=== PATIENT | male | born 1940 | race Caucasian/White ===

== ENCOUNTER → 2018-06-20 | Outpatient (CLI) | payer MEDICARE | END | disposition home or self-care (01) | LOC: ROC 06-19 09:20 | PROVIDERS: ATTEND Radiology Radiation Oncology | DX: C44.41 Basal cell carcinoma of skin of scalp and neck (principal); Z88.0 Allergy status to penicillin | CPT/HCPCS: 99214; G0463 ==

== ENCOUNTER 2018-08-04 10:10 | Inpatient (IN) | payer MEDICARE ==
[~2018-08-04] VITALS: Ht 172.7 cm; Wt 46.3 kg
[2018-08-04] MEDS ORDERED: METHOCARBAMOL 750 MG TABLET PO ONE (10:30)
[2018-08-04] MEDS ORDERED: HYDROcodone/APAP 5/325 TABLET PO ONE (10:30)
[2018-08-04] MEDS ORDERED: METHOCARBAMOL 750 MG TABLET ONE (11:04)
[2018-08-04] MEDS ORDERED: HYDROcodone/APAP 5/325 TABLET ONE (11:05)
[2018-08-04] MEDS ORDERED: SODIUM CHLORIDE FLUSH 10ML SYR IVF ONE (11:30)
[2018-08-04 12:02] LABS: BASOPHILS # (AUTO) 0.01 x10^3/uL (0-0.1); BASOPHILS % (AUTO) 0 % (0-1); EOSINOPHILS # (AUTO) 0.17 x10^3/uL (0-0.4); EOSINOPHILS % (AUTO) 2 % (1-7); LYMPHOCYTES # (AUTO) 0.51 x10^3/uL (1-3.4); LYMPHOCYTES % (AUTO) 5 % (22-44); MD NO; MEAN CORPUSCULAR HEMOGLOBIN 32.7 pg (27.5-34.5); MEAN CORPUSCULAR VOLUME 96.1 fL (81-97); MEAN PLATELET VOLUME 8.3 fL (7.4-10.4); MONOCYTES # (AUTO) 1.03 x10^3/uL (0.2-0.8); MONOCYTES % (AUTO) 10 % (2-9); NEUTROPHILS # (AUTO) 8.76 x10^3/uL (1.8-6.8); NEUTROPHILS % (AUTO) 84 % (42-75); PLATELET COUNT 202 x10^3/uL (130-400); RED BLOOD COUNT 4.02 x10^6/uL (4.38-5.82); RED CELL DISTRIBUTION WIDTH 14.9 % (9.4-14.8)
[2018-08-04 12:12] LABS: ALBUMIN 2.8 g/dL (3.4-5.0); ANION GAP 7 mmol/L (5-15); CALCIUM 8.7 mg/dL (8.5-10.1); CHLORIDE 100 mmol/L (98-107); CREATININE 0.88 mg/dL (0.7-1.3)
[2018-08-04] MEDS ORDERED: SODIUM CHLORIDE FLUSH 10ML SYR IVF PRN (13:00)
[2018-08-04] MEDS ORDERED: ONDANSETRON ODT 4 MG PO PRN (13:30)
[2018-08-04] MEDS ORDERED: ONDANSETRON 2MG/ML, 2ML IVPush PRN (13:30)
[2018-08-04] MEDS ORDERED: ENALAPRILAT 1.25 MG/ML, 2ML IVPush PRN (13:30)
[2018-08-04] MEDS ORDERED: LIDODERM 5% PATCH TD PRN (13:30)
[2018-08-04] MEDS ORDERED: ACETAMINOPHEN 325 MG TABLET PO PRN (13:30)
[2018-08-04] MEDS ORDERED: BISACODYL 10 MG SUPP PR PRN (13:30)
[2018-08-04] MEDS ORDERED: DOCUSATE 100 MG CAPSULE PO PRN (13:30)
[2018-08-04] MEDS ORDERED: LABETALOL 5MG/ML, 20ML IVPush PRN (13:30)
[2018-08-04 13:33] LABS: MICROSCOPIC NOT IND
[2018-08-04 13:45] LABS: CULTURE INDICATED? NO
[2018-08-04 14:21] VITALS: BP 198/95
[2018-08-04] MEDS ORDERED: [UNRECOGNIZED DRUG - CODE] PO (14:34)
[2018-08-04] MEDS ORDERED: AMLO5TAB4 PO (14:34)
[2018-08-04] MEDS ORDERED: FINA5TAB PO (14:34)
[2018-08-04] MEDS ORDERED: TAMS0.4C2 PO (14:34)
[2018-08-04] MEDS ORDERED: DEME150T PO (14:34)
[2018-08-04] MEDS ORDERED: CARV25TA PO (14:34)
[2018-08-04 14:44] VITALS: BP 187/95
[2018-08-04] MEDS: ENOXAPARIN 40 MG/0.4 ML SQ SCH (14:52)
[2018-08-04 15:36] VITALS: BP 154/81
[2018-08-04] MEDS ORDERED: DEMECLOCYCLINE 150 MG TABLET PO SCH (16:30)
[2018-08-04] MEDS: POTASSIUM ACETATE HOMEMEDPO SCH (16:51)
[2018-08-04] MEDS: DEMECLOCYCLINE 150 MG TABLET HOMEMEDPO SCH (16:51)
[2018-08-04] MEDS: FINASTERIDE 5 MG TABLET PO SCH (17:01)
[2018-08-04 20:02] VITALS: BP 154/75
[2018-08-04] MEDS: KETOROLAC 30 MG/1 ML IV PRN (21:51)
[2018-08-04] MEDS: CARVEDILOL 25 MG TABLET PO SCH (21:51)
[2018-08-05 00:35] VITALS: BP 133/73
[2018-08-05 04:41] LABS: BASOPHILS # (AUTO) 0.05 x10^3/uL (0-0.1); BASOPHILS % (AUTO) 1 % (0-1); EOSINOPHILS # (AUTO) 0.31 x10^3/uL (0-0.4); EOSINOPHILS % (AUTO) 4 % (1-7); LYMPHOCYTES # (AUTO) 0.54 x10^3/uL (1-3.4); LYMPHOCYTES % (AUTO) 7 % (22-44); MD NO; MEAN CORPUSCULAR HEMOGLOBIN 32.6 pg (27.5-34.5); MEAN CORPUSCULAR HGB CONC 34.1 g/dL (33.2-36.2); MEAN CORPUSCULAR VOLUME 95.7 fL (81-97); MEAN PLATELET VOLUME 8.3 fL (7.4-10.4); MONOCYTES # (AUTO) 0.77 x10^3/uL (0.2-0.8); MONOCYTES % (AUTO) 10 % (2-9); NEUTROPHILS # (AUTO) 5.77 x10^3/uL (1.8-6.8); NEUTROPHILS % (AUTO) 78 % (42-75); PLATELET COUNT 189 x10^3/uL (130-400); RED BLOOD COUNT 3.76 x10^6/uL (4.38-5.82); RED CELL DISTRIBUTION WIDTH 14.9 % (9.4-14.8)
[2018-08-05 04:53] LABS: ANION GAP 6 mmol/L (5-15); CALCIUM 8.1 mg/dL (8.5-10.1); CHLORIDE 102 mmol/L (98-107)
[2018-08-05] MEDS: BACLOFEN 10 MG TABLET PO PRN (04:54)
[2018-08-05] MEDS: KETOROLAC 30 MG/1 ML IV PRN (04:54)
[2018-08-05 04:55] LABS: CREATININE 0.94 mg/dL (0.7-1.3)
[2018-08-05 07:52] VITALS: BP 161/80
[2018-08-05] MEDS: SENNA/DOCUSATE TABLET PO SCH (09:09)
[2018-08-05] MEDS: CARVEDILOL 25 MG TABLET PO SCH ×2 (09:10→20:15)
[2018-08-05] MEDS: TAMSULOSIN 0.4 MG CAP.ER.24H PO SCH (09:10)
[2018-08-05] MEDS: AMLODIPINE 5 MG TABLET PO SCH (09:10)
[2018-08-05] MEDS: IBUPROFEN 600 MG TABLET PO PRN (11:47)
[2018-08-05] MEDS: CYCLOBENZAPRINE 10 MG TABLET PO PRN (11:47)
[2018-08-05 13:17] VITALS: BP 92/58
[2018-08-05] MEDS: ENOXAPARIN 40 MG/0.4 ML SQ SCH (13:36)
[2018-08-05 13:38] VITALS: BP 100/59
[2018-08-05] MEDS: DEMECLOCYCLINE 150 MG TABLET HOMEMEDPO SCH (16:30)
[2018-08-05] MEDS: POTASSIUM ACETATE HOMEMEDPO SCH (16:30)
[2018-08-05] MEDS: FINASTERIDE 5 MG TABLET PO SCH (16:46)
[2018-08-05 19:38] VITALS: BP 140/67
[2018-08-06 00:46] VITALS: BP 133/67
[2018-08-06] MEDS: BACLOFEN 10 MG TABLET PO PRN (06:23)
[2018-08-06 06:47] VITALS: BP 147/74
[2018-08-06] MEDS: TAMSULOSIN 0.4 MG CAP.ER.24H PO SCH (09:07)
[2018-08-06] MEDS: AMLODIPINE 5 MG TABLET PO SCH (09:07)
[2018-08-06] MEDS: SENNA/DOCUSATE TABLET PO SCH (09:07)
[2018-08-06] MEDS: CARVEDILOL 25 MG TABLET PO SCH ×2 (09:07→21:00)
[2018-08-06] MEDS: KETOROLAC 30 MG/1 ML IV PRN ×2 (09:08→23:52)
[2018-08-06 12:16] VITALS: BP 138/81
[2018-08-06] MEDS: ENOXAPARIN 40 MG/0.4 ML SQ SCH (12:49)
[2018-08-06] MEDS ORDERED: BACLOFEN 10 MG TABLET PO PRN (13:00)
[2018-08-06] MEDS: POTASSIUM ACETATE HOMEMEDPO SCH (16:24)
[2018-08-06] MEDS: DEMECLOCYCLINE 150 MG TABLET HOMEMEDPO SCH (16:24)
[2018-08-06] MEDS: FINASTERIDE 5 MG TABLET PO SCH (16:26)
[2018-08-06] MEDS: CYCLOBENZAPRINE 10 MG TABLET PO PRN (18:37)
[2018-08-06 19:12] VITALS: BP 117/73
[2018-08-07 01:44] VITALS: BP 156/89
[2018-08-07] MEDS: IBUPROFEN 600 MG TABLET PO PRN (03:22)
[2018-08-07] MEDS: CYCLOBENZAPRINE 10 MG TABLET PO PRN (03:22)
[2018-08-07 07:22] VITALS: BP 153/67
[2018-08-07] MEDS: TAMSULOSIN 0.4 MG CAP.ER.24H PO SCH (10:13)
[2018-08-07] MEDS: AMLODIPINE 5 MG TABLET PO SCH (10:13)
[2018-08-07] MEDS: CARVEDILOL 25 MG TABLET PO SCH (10:13)
[2018-08-07] MEDS: SENNA/DOCUSATE TABLET PO SCH (10:15)
[2018-08-07 10:19] LABS: BASOPHILS # (AUTO) 0.02 x10^3/uL (0-0.1); BASOPHILS % (AUTO) 0 % (0-1); EOSINOPHILS # (AUTO) 0.39 x10^3/uL (0-0.4); EOSINOPHILS % (AUTO) 5 % (1-7); LYMPHOCYTES # (AUTO) 0.48 x10^3/uL (1-3.4); LYMPHOCYTES % (AUTO) 6 % (22-44); MD NO; MEAN CORPUSCULAR HEMOGLOBIN 31.7 pg (27.5-34.5); MEAN CORPUSCULAR HGB CONC 33.5 g/dL (33.2-36.2); MEAN CORPUSCULAR VOLUME 94.6 fL (81-97); MEAN PLATELET VOLUME 7.9 fL (7.4-10.4); MONOCYTES # (AUTO) 0.79 x10^3/uL (0.2-0.8); MONOCYTES % (AUTO) 10 % (2-9); NEUTROPHILS # (AUTO) 6.02 x10^3/uL (1.8-6.8); NEUTROPHILS % (AUTO) 78 % (42-75); PLATELET COUNT 230 x10^3/uL (130-400); RED BLOOD COUNT 4.29 x10^6/uL (4.38-5.82); RED CELL DISTRIBUTION WIDTH 14.8 % (9.4-14.8)
[2018-08-07 10:28] LABS: ALANINE AMINOTRANSFERASE 37 U/L (12-78); ALBUMIN 2.6 g/dL (3.4-5.0); ANION GAP 8 mmol/L (5-15); CALCIUM 8.5 mg/dL (8.5-10.1); CHLORIDE 98 mmol/L (98-107); CREATININE 0.87 mg/dL (0.7-1.3)
[2018-08-07 10:30] LABS: ALKALINE PHOSPHATASE 216 U/L (45-117); BILIRUBIN,TOTAL 0.5 mg/dL (0.2-1.0); TOTAL PROTEIN 6.7 g/dL (6.4-8.2)
[2018-08-07] MEDS ORDERED: ONDA4TAB13 PO (11:36)
[2018-08-07] MEDS ORDERED: TRAM50TA2 PO (11:36)
[2018-08-07] MEDS ORDERED: GABA300C PO (11:36)
[2018-08-07] MEDS ORDERED: CYCL-259 PO (11:36)
[2018-08-07] MEDS ORDERED: LIDO700A20 TD (11:36)
[2018-08-07] MEDS: ENOXAPARIN 40 MG/0.4 ML SQ SCH (13:30)
[2018-08-07] MEDS: FINASTERIDE 5 MG TABLET PO SCH (16:25)
[2018-08-07] MEDS: KETOROLAC 30 MG/1 ML IV PRN (16:25)
[2018-08-07] MEDS: DEMECLOCYCLINE 150 MG TABLET HOMEMEDPO SCH (16:30)
[2018-08-07] MEDS: POTASSIUM ACETATE HOMEMEDPO SCH (16:30)
== END 2018-08-07 16:40 | disposition home or self-care (01) | DRG 91 ==
LOC: ED 12:54 → EDIP 12:55 → 3NW 13:52
PROVIDERS: ADMIT Family Medicine; ATTEND Family Medicine
DX: G95.29 Other cord compression (principal); E43 Unspecified severe protein-calorie malnutrition; M80.88XA Other osteoporosis with current pathological fracture, vertebra(e), initial encounter for fracture; E87.1 Hypo-osmolality and hyponatremia; M54.5 Low back pain; Z88.0 Allergy status to penicillin; I10 Essential (primary) hypertension; D64.9 Anemia, unspecified; I70.0 Atherosclerosis of aorta; J44.9 Chronic obstructive pulmonary disease, unspecified; M85.80 Other specified disorders of bone density and structure, unspecified site; Z85.820 Personal history of malignant melanoma of skin; Z87.891 Personal history of nicotine dependence; Z99.81 Dependence on supplemental oxygen
CPT/HCPCS: 36415; 70551; 72072; 72110; 77412; 80048; 80053; 81003; 82040; 83735; 84100; 85025; 93880; 99285; G0378; J1650; J1885

== ENCOUNTER 2018-09-29 08:49 | Outpatient (CLI) | payer MEDICARE ==
[~2018-09-29 08:49] MED LIST: AMLO5TAB4 PO; CARV25TA PO; CYCL-259 PO; DEME150T PO; FINA5TAB PO; GABA300C PO; LIDO700A20 TD; ONDA4TAB13 PO; TAMS0.4C2 PO; TRAM50TA2 PO; [UNRECOGNIZED DRUG - CODE] PO
== END 2018-09-29 23:59 | disposition home or self-care (01) ==
LOC: ROC 08:49
PROVIDERS: ATTEND Radiology Radiation Oncology
DX: Z02.9 Encounter for administrative examinations, unspecified (principal)

== ENCOUNTER 2018-10-06 07:20 | Outpatient (CLI) | payer MEDICARE | END 2018-10-06 23:59 | disposition home or self-care (01) | LOC: ROC 07:20 | PROVIDERS: ATTEND Radiology Radiation Oncology | DX: C44.41 Basal cell carcinoma of skin of scalp and neck (principal) | CPT/HCPCS: 99212; G0463 ==

== ENCOUNTER 2019-02-26 22:26 | Inpatient (IN) | payer MEDICARE ==
[~2019-02-26] VITALS: Ht 172.7 cm; Wt 48.0 kg
--- NOTE | 2019-02-26 22:34 | NUR ---
EKG DONE ON ARRIVAL
[2019-02-26] MEDS ORDERED: LISINOPRIL (22:49)
[2019-02-26] MEDS ORDERED: ALBU8.5H8 INH (22:49)
--- NOTE | 2019-02-26 23:00 | NUR ---
PT IN HOSPITAL GOWN. SON AT BEDSIDE. PT PLACED ON ICE BAG ASSEMBLER AND VITALS MONITORS. PT HAS IV ESTABLISHED.
[2019-02-26 23:05] LABS: BASOPHILS % (AUTO) 0 % (0-1); EOSINOPHILS # (AUTO) 0.62 x10^3/uL (0-0.4); EOSINOPHILS % (AUTO) 8 % (1-7); LYMPHOCYTES # (AUTO) 0.68 x10^3/uL (1-3.4); LYMPHOCYTES % (AUTO) 8 % (22-44); MD NO; MEAN CORPUSCULAR HEMOGLOBIN 29.7 pg (27.5-34.5); MEAN CORPUSCULAR HGB CONC 31.3 g/dL (33.2-36.2); MEAN CORPUSCULAR VOLUME 94.6 fL (81-97); MEAN PLATELET VOLUME 7.8 fL (7.4-10.4); MONOCYTES # (AUTO) 0.61 x10^3/uL (0.2-0.8); MONOCYTES % (AUTO) 8 % (2-9); NEUTROPHILS # (AUTO) 6.22 x10^3/uL (1.8-6.8); NEUTROPHILS % (AUTO) 77 % (42-75); PLATELET COUNT 231 x10^3/uL (130-400); RED BLOOD COUNT 4.41 x10^6/uL (4.38-5.82); RED CELL DISTRIBUTION WIDTH 14.9 % (9.4-14.8)
[2019-02-26 23:15] LABS: ALANINE AMINOTRANSFERASE 27 U/L (12-78); ALBUMIN 2.9 g/dL (3.4-5.0); ANION GAP 9 mmol/L (5-15); CALCIUM 8.4 mg/dL (8.5-10.1); CHLORIDE 105 mmol/L (98-107); CREATININE 1.08 mg/dL (0.7-1.3)
[2019-02-26 23:20] LABS: ALKALINE PHOSPHATASE 225 U/L (45-117); BILIRUBIN,TOTAL 0.4 mg/dL (0.2-1.0); TOTAL PROTEIN 6.8 g/dL (6.4-8.2); TROPONIN I < 0.015 ng/mL (0.000-0.045)
--- NOTE | 2019-02-26 23:25 | NUR ---
NO RT EVAL ORDERED AT THIS TIME. DISCUSSED WITH ERP. PT RECIEVED 3 NBBP TXs WITH [facility] AND IV STEROIDS. ERP STATED WILL RE-EVAL PT.
--- NOTE | 2019-02-27 00:08 | NUR ---
PT GOING TO CTA AT THIS TIME.
[2019-02-27] MEDS ORDERED: OMNIPAQUE 350 MG/ML, 100ML BOTTLE ONE (00:30)
--- NOTE | 2019-02-27 00:48 | NUR ---
PT RESTING CALMLY IN BED AT THIS TIME. PT ABLE TO URINATE IN URINAL. AWAITING CTA READ. PT SON REMAINS AT BEDSIDE. NO COMPLAINTS STATED BY PT AT THIS TIME.
--- NOTE | 2019-02-27 01:05 | NUR ---
ALL PT RESULTS BACK. PT UP FOR RECHECK.
[2019-02-27 01:33] LABS: INTERNATIONAL NORMALIZED RATIO 1.09 (0.93-1.1); PROTHROMBIN TIME 11.4 Seconds (9.6-11.5)
--- NOTE | 2019-02-27 01:53 | NUR ---
REPORT TO SHANNA LOPEZ FOR ROOM 523
[2019-02-27] MEDS ORDERED: HEPARIN 25,000 UNITS/500ML PMX 500 ML IV PRN ×3 (02:00→04:00)
[2019-02-27] MEDS ORDERED: HEPARIN 5,000 UNITS/ML, 1ML IV ONE ×2 (02:00)
--- NOTE | 2019-02-27 02:06 | NUR ---
HOSPITALIST IN ROOM. PT READY TO GO AFTER.
[2019-02-27] MEDS ORDERED: HEPARIN 5,000 UNITS/ML, 1ML ONE (02:10)
[2019-02-27] MEDS ORDERED: HEPARIN 25,000 UNITS/500ML PMX 500 ML ONE (02:10)
[2019-02-27] MEDS ORDERED: ONDANSETRON 2MG/ML, 2ML IVPush PRN (02:30)
[2019-02-27] MEDS ORDERED: ACETAMINOPHEN 325 MG TABLET PO PRN (02:30)
[2019-02-27] MEDS ORDERED: LIDODERM 5% PATCH TD PRN (02:30)
[2019-02-27 02:36] VITALS: BP 168/83
[2019-02-27 04:42] LABS: TROPONIN I < 0.015 ng/mL (0.000-0.045)
[2019-02-27 04:43] LABS: CHOL/HDL RATIO 3.5; LDL/HDL RATIO 2.3 (0.5-3.0)
[2019-02-27 08:03] VITALS: BP 157/75
[2019-02-27 08:39] LABS: TROPONIN I < 0.015 ng/mL (0.000-0.045)
[2019-02-27] MEDS: ALBUTEROL SULFATE 2.5 MG/3 ML NPPB SCH ×3 (09:00→21:20)
[2019-02-27] MEDS: BUDESONIDE 0.5 MG/2 ML INHA NPPB SCH ×2 (09:00→21:20)
[2019-02-27] MEDS: TAMSULOSIN 0.4 MG CAP.ER.24H PO SCH (10:05)
[2019-02-27] MEDS: LISINOPRIL 5 MG TABLET PO SCH (10:05)
[2019-02-27 13:21] VITALS: BP 157/77
[2019-02-27] MEDS: HEPARIN 5,000 UNITS/ML, 1ML IV PRN (16:38)
[2019-02-27] MEDS: FINASTERIDE 5 MG TABLET PO SCH (16:39)
[2019-02-27 19:17] VITALS: BP 118/65
[2019-02-28 00:24] VITALS: BP 119/56
[2019-02-28] MEDS: ALBUTEROL SULFATE 2.5 MG/3 ML NPPB SCH ×4 (03:00→19:49)
[2019-02-28 05:33] LABS: ANION GAP 9 mmol/L (5-15); CALCIUM 8.1 mg/dL (8.5-10.1); CHLORIDE 105 mmol/L (98-107)
[2019-02-28 05:34] LABS: CREATININE 1.01 mg/dL (0.7-1.3)
[2019-02-28] MEDS: HEPARIN 5,000 UNITS/ML, 1ML IV PRN (06:12)
[2019-02-28] MEDS: LISINOPRIL 5 MG TABLET PO SCH (08:33)
[2019-02-28] MEDS: TAMSULOSIN 0.4 MG CAP.ER.24H PO SCH (08:33)
[2019-02-28] MEDS ORDERED: POTASSIUM CHLORIDE 20 MEQ TAB.ER.PRT PO ONE ×2 (09:00→14:30)
[2019-02-28 09:38] VITALS: BP 117/66
[2019-02-28] MEDS: BUDESONIDE 0.5 MG/2 ML INHA NPPB SCH ×2 (10:05→19:49)
[2019-02-28 14:16] VITALS: BP 161/82
[2019-02-28] MEDS: FINASTERIDE 5 MG TABLET PO SCH (15:39)
[2019-02-28 19:30] VITALS: BP 156/78
[2019-03-01 00:15] VITALS: BP 132/61
[2019-03-01 01:32] LABS: BASOPHILS # (AUTO) 0.01 x10^3/uL (0-0.1); BASOPHILS % (AUTO) 0 % (0-1); EOSINOPHILS # (AUTO) 0.05 x10^3/uL (0-0.4); EOSINOPHILS % (AUTO) 1 % (1-7); LYMPHOCYTES # (AUTO) 0.48 x10^3/uL (1-3.4); LYMPHOCYTES % (AUTO) 7 % (22-44); MD NO; MEAN CORPUSCULAR HEMOGLOBIN 30.2 pg (27.5-34.5); MEAN CORPUSCULAR HGB CONC 32.2 g/dL (33.2-36.2); MEAN PLATELET VOLUME 7.8 fL (7.4-10.4); MONOCYTES # (AUTO) 0.66 x10^3/uL (0.2-0.8); MONOCYTES % (AUTO) 10 % (2-9); NEUTROPHILS # (AUTO) 5.36 x10^3/uL (1.8-6.8); NEUTROPHILS % (AUTO) 82 % (42-75); PLATELET COUNT 201 x10^3/uL (130-400); RED BLOOD COUNT 3.68 x10^6/uL (4.38-5.82); RED CELL DISTRIBUTION WIDTH 14.6 % (9.4-14.8)
[2019-03-01 01:34] LABS: ANION GAP 6 mmol/L (5-15); CALCIUM 8.2 mg/dL (8.5-10.1); CHLORIDE 104 mmol/L (98-107); CREATININE 0.91 mg/dL (0.7-1.3)
[2019-03-01] MEDS: HEPARIN 5,000 UNITS/ML, 1ML IV PRN (02:11)
[2019-03-01] MEDS: ALBUTEROL SULFATE 2.5 MG/3 ML NPPB SCH ×4 (02:31→20:45)
[2019-03-01 08:33] VITALS: BP 178/84
[2019-03-01] MEDS: LISINOPRIL 5 MG TABLET PO SCH (08:35)
[2019-03-01] MEDS: TAMSULOSIN 0.4 MG CAP.ER.24H PO SCH (08:35)
[2019-03-01] MEDS: BUDESONIDE 0.5 MG/2 ML INHA NPPB SCH ×2 (10:25→20:45)
[2019-03-01] MEDS: FINASTERIDE 5 MG TABLET PO SCH (15:31)
[2019-03-01 15:41] VITALS: BP 145/73
[2019-03-01 20:07] VITALS: BP_SYST 111; BP_SYST 125; BP_DIAS 56; BP_DIAS 81
[2019-03-01] MEDS: HEPARIN 25,000 UNITS/500ML PMX 500 ML IV PRN (21:28)
[2019-03-02 02:17] VITALS: BP 100/56
[2019-03-02] MEDS: ALBUTEROL SULFATE 2.5 MG/3 ML NPPB SCH ×4 (03:00→21:05)
[2019-03-02] MEDS: BUDESONIDE 0.5 MG/2 ML INHA NPPB SCH ×2 (06:47→21:05)
[2019-03-02 09:58] VITALS: BP 166/85
[2019-03-02] MEDS ORDERED: MIDAZOLAM 1 MG/ML, 5ML ONE ×2 (11:07→15:02)
[2019-03-02] MEDS ORDERED: FENTANYL PF 100 MCG/2ML ONE ×2 (11:07→15:02)
[2019-03-02] MEDS ORDERED: NALOXONE 1 MG/ML, 2ML ONE ×2 (11:08→15:02)
[2019-03-02] MEDS ORDERED: FLUMAZENIL 0.1 MG/1 ML, 5ML ONE ×2 (11:08→15:02)
[2019-03-02] MEDS: LISINOPRIL 5 MG TABLET PO SCH (12:36)
[2019-03-02] MEDS: TAMSULOSIN 0.4 MG CAP.ER.24H PO SCH (12:36)
[2019-03-02] MEDS ORDERED: D5%-0.45% NACL 1,000 ML IV SCH (15:00)
[2019-03-02] MEDS ORDERED: LIDOCAINE-MPF 1%, 5ML ONE (15:11)
[2019-03-02] MEDS: FINASTERIDE 5 MG TABLET PO SCH (16:14)
[2019-03-02 16:34] VITALS: BP 175/83
[2019-03-02 20:25] VITALS: BP 138/74
[2019-03-03 01:36] VITALS: BP 148/72
[2019-03-03] MEDS: ALBUTEROL SULFATE 2.5 MG/3 ML NPPB SCH ×4 (02:03→19:19)
[2019-03-03 06:46] VITALS: BP 196/98
[2019-03-03] MEDS: BUDESONIDE 0.5 MG/2 ML INHA NPPB SCH ×2 (07:34→19:19)
[2019-03-03] MEDS: LISINOPRIL 5 MG TABLET PO SCH (07:38)
[2019-03-03] MEDS: TAMSULOSIN 0.4 MG CAP.ER.24H PO SCH (07:38)
[2019-03-03 14:33] VITALS: BP 104/59
[2019-03-03] MEDS: FINASTERIDE 5 MG TABLET PO SCH (17:13)
[2019-03-03] MEDS: HEPARIN 25,000 UNITS/500ML PMX 500 ML IV PRN (17:14)
[2019-03-03 20:13] VITALS: BP 118/57
[2019-03-04 02:26] VITALS: BP 177/78
[2019-03-04] MEDS: ALBUTEROL SULFATE 2.5 MG/3 ML NPPB SCH ×2 (03:00→06:55)
[2019-03-04 04:46] VITALS: BP 145/72
[2019-03-04] MEDS: BUDESONIDE 0.5 MG/2 ML INHA NPPB SCH ×2 (06:55→20:41)
[2019-03-04 07:58] VITALS: BP 168/74
[2019-03-04] MEDS: TAMSULOSIN 0.4 MG CAP.ER.24H PO SCH (08:03)
[2019-03-04] MEDS: LISINOPRIL 5 MG TABLET PO SCH (08:04)
[2019-03-04] MEDS ORDERED: ALBUTEROL SULFATE 2.5 MG/3 ML NPPB PRN (10:30)
[2019-03-04 13:00] VITALS: BP 107/62
[2019-03-04 15:40] LABS: HCT (SEDRATE) 36.7 % (39.2-51.8)
[2019-03-04] MEDS: FINASTERIDE 5 MG TABLET PO SCH (15:58)
[2019-03-04] MEDS: HEPARIN 25,000 UNITS/500ML PMX 500 ML IV PRN (19:52)
[2019-03-04 21:30] VITALS: BP 106/51
[2019-03-05 03:28] VITALS: BP 117/60
[2019-03-05 07:33] LABS: ANION GAP 4 mmol/L (5-15); CALCIUM 8.7 mg/dL (8.5-10.1); CHLORIDE 98 mmol/L (98-107); CREATININE 0.76 mg/dL (0.7-1.3)
[2019-03-05 07:48] VITALS: BP 180/83
[2019-03-05 07:48] LABS: BASOPHILS # (AUTO) 0.01 x10^3/uL (0-0.1); BASOPHILS % (AUTO) 0 % (0-1); EOSINOPHILS # (AUTO) 0.17 x10^3/uL (0-0.4); EOSINOPHILS % (AUTO) 2 % (1-7); LYMPHOCYTES # (AUTO) 0.66 x10^3/uL (1-3.4); LYMPHOCYTES % (AUTO) 6 % (22-44); MD NO; MEAN CORPUSCULAR HEMOGLOBIN 30.3 pg (27.5-34.5); MEAN CORPUSCULAR HGB CONC 32.6 g/dL (33.2-36.2); MEAN CORPUSCULAR VOLUME 92.7 fL (81-97); MEAN PLATELET VOLUME 7.9 fL (7.4-10.4); MONOCYTES # (AUTO) 0.92 x10^3/uL (0.2-0.8); MONOCYTES % (AUTO) 8 % (2-9); NEUTROPHILS # (AUTO) 9.44 x10^3/uL (1.8-6.8); NEUTROPHILS % (AUTO) 84 % (42-75); PLATELET COUNT 216 x10^3/uL (130-400); RED BLOOD COUNT 3.79 x10^6/uL (4.38-5.82); RED CELL DISTRIBUTION WIDTH 14.5 % (9.4-14.8)
[2019-03-05] MEDS: LISINOPRIL 5 MG TABLET PO SCH (08:02)
[2019-03-05] MEDS: TAMSULOSIN 0.4 MG CAP.ER.24H PO SCH (08:02)
[2019-03-05] MEDS: BUDESONIDE 0.5 MG/2 ML INHA NPPB SCH ×2 (09:00→20:53)
[2019-03-05 09:15] VITALS: BP 151/70
[2019-03-05 13:12] VITALS: BP 124/70
[2019-03-05 14:02] LABS: QUANTIFERON TB Ag1-NIL 0 (0.000-0.000)
[2019-03-05] MEDS: FINASTERIDE 5 MG TABLET PO SCH (16:03)
[2019-03-05] MEDS: ALBUTEROL SULFATE 2.5 MG/3 ML NPPB SCH ×2 (16:15→20:53)
[2019-03-05 19:31] VITALS: BP 174/80
[2019-03-05] MEDS: HEPARIN 25,000 UNITS/500ML PMX 500 ML IV PRN (22:52)
[2019-03-06] MEDS: ALBUTEROL SULFATE 2.5 MG/3 ML NPPB SCH ×4 (02:30→18:53)
[2019-03-06 03:30] VITALS: BP 130/70
[2019-03-06 07:58] VITALS: BP 149/70
[2019-03-06] MEDS: TAMSULOSIN 0.4 MG CAP.ER.24H PO SCH (08:00)
[2019-03-06] MEDS: LISINOPRIL 5 MG TABLET PO SCH (08:00)
[2019-03-06] MEDS: BUDESONIDE 0.5 MG/2 ML INHA NPPB SCH ×2 (08:09→18:53)
[2019-03-06 14:09] VITALS: BP 94/54
[2019-03-06] MEDS: FINASTERIDE 5 MG TABLET PO SCH (16:27)
[2019-03-06 20:56] VITALS: BP 95/55
[2019-03-07 02:13] VITALS: BP 131/53
[2019-03-07] MEDS: ALBUTEROL SULFATE 2.5 MG/3 ML NPPB SCH ×4 (02:30→21:00)
[2019-03-07] MEDS: HEPARIN 5,000 UNITS/ML, 1ML IV PRN (05:32)
[2019-03-07] MEDS: HEPARIN 25,000 UNITS/500ML PMX 500 ML IV PRN (05:33)
[2019-03-07 08:18] VITALS: BP 156/76
[2019-03-07] MEDS: LISINOPRIL 5 MG TABLET PO SCH (08:27)
[2019-03-07] MEDS: TAMSULOSIN 0.4 MG CAP.ER.24H PO SCH (08:27)
[2019-03-07] MEDS: BUDESONIDE 0.5 MG/2 ML INHA NPPB SCH ×2 (10:25→21:00)
[2019-03-07] MEDS ORDERED: RIVA1TAB PO (13:01)
[2019-03-07] MEDS ORDERED: LISI5TAB7 PO (13:01)
[2019-03-07] MEDS: RIVAROXABAN 15 MG TABLET PO SCH ×2 (13:49→13:54)
[2019-03-07 14:30] VITALS: BP 135/71
[2019-03-07] MEDS: FINASTERIDE 5 MG TABLET PO SCH (16:15)
[2019-03-07 20:10] VITALS: BP 116/69
[2019-03-08 02:09] VITALS: BP 128/71
[2019-03-08] MEDS: ALBUTEROL SULFATE 2.5 MG/3 ML NPPB SCH ×3 (03:00→09:00)
[2019-03-08] MEDS: BUDESONIDE 0.5 MG/2 ML INHA NPPB SCH (06:58)
[2019-03-08 07:31] VITALS: BP 163/77
[2019-03-08] MEDS: LISINOPRIL 5 MG TABLET PO SCH (08:22)
[2019-03-08] MEDS: RIVAROXABAN 15 MG TABLET PO SCH ×2 (08:22→17:14)
[2019-03-08] MEDS: TAMSULOSIN 0.4 MG CAP.ER.24H PO SCH (08:22)
[2019-03-08] MEDS: FINASTERIDE 5 MG TABLET PO SCH (13:07)
[2019-03-08 14:06] VITALS: BP 112/65
[2019-03-08 17:03] VITALS: BP 152/76
== END 2019-03-08 17:24 | disposition home or self-care (01) | DRG 175 ==
LOC: ED 22:47 → EDIP 02-27 01:17 → 5SO 02-27 02:46 → 4NOR 02-28 13:04
PROVIDERS: ADMIT Family Medicine; ATTEND Family Medicine
PROC: 0BBL3ZX Excision of Left Lung, Percutaneous Approach, Diagnostic (ICD-10-PCS; principal; 2019-03-02)
PROC: 0W9B30Z Drainage of Left Pleural Cavity with Drainage Device, Percutaneous Approach (ICD-10-PCS; 2019-03-02)
DX: I26.99 Other pulmonary embolism without acute cor pulmonale (principal); J96.21 Acute and chronic respiratory failure with hypoxia; E43 Unspecified severe protein-calorie malnutrition; J44.1 Chronic obstructive pulmonary disease with (acute) exacerbation; Z68.1 Body mass index [BMI] 19.9 or less, adult; I82.413 Acute embolism and thrombosis of femoral vein, bilateral; I82.431 Acute embolism and thrombosis of right popliteal vein; Z88.0 Allergy status to penicillin; D64.9 Anemia, unspecified; E87.6 Hypokalemia; F17.200 Nicotine dependence, unspecified, uncomplicated; I10 Essential (primary) hypertension; I73.9 Peripheral vascular disease, unspecified; J84.10 Pulmonary fibrosis, unspecified; N40.1 Benign prostatic hyperplasia with lower urinary tract symptoms; R33.8 Other retention of urine; Z79.899 Other long term (current) drug therapy; Z66 Do not resuscitate; Z82.49 Family history of ischemic heart disease and other diseases of the circulatory system; Z85.828 Personal history of other malignant neoplasm of skin; Z92.3 Personal history of irradiation; Z99.81 Dependence on supplemental oxygen
CPT/HCPCS: 32405; 32557; 36415; 71045; 71275; 77012; 80048; 80053; 80061; 83735; 84145; 84443; 84484; 85025; 85520; 85610; 85651; 85730; 86140; 86480; 87015; 87116; 87206; 88305; 88312; 93005; 93306; 93970; 94640; 99156; 99157; 99285; G0378; J1644; J2250; J3010; J7613; J7626; Q9967; C1729; J2310; J7512

== ENCOUNTER 2019-09-29 16:33 | Emergency (ER) | payer MEDICARE ==
[~2019-09-29] VITALS: Ht 170.2 cm; Wt 45.5 kg
[~2019-09-29 16:33] MED LIST changes: +ALBU8.5H8 INH; +LISI5TAB7 PO; +LISINOPRIL; +RIVA1TAB PO
--- NOTE | 2019-09-29 17:21 | NUR ---
THIS IS A 79 YO M BIB [facility]. PATIENT DENIES ANY NEW ONSET OF SYMPTOMS. RESPIRATIONS ARE EVEN AND UNLABORED. VS STABLE. PATIENT IS RESTING ON GURNEY WITH FAMILY AT BEDSIDE. DENIES FURTHER NEEDS AT THIS TIME.
[2019-09-29 17:39] LABS: ANION GAP 8 mmol/L (5-15); CALCIUM 8.3 mg/dL (8.5-10.1); CHLORIDE 99 mmol/L (98-107); CREATININE 0.69 mg/dL (0.7-1.3)
--- NOTE | 2019-09-29 17:54 | NUR ---
LAB SLIP SENT TO PHARMACY.
--- NOTE | 2019-09-29 17:59 | NUR ---
LABS REDRAWN AND SENT.
[2019-09-29] MEDS ORDERED: POTASSIUM CHLORIDE 20 MEQ PACKET PO ONE (18:00)
[2019-09-29 18:12] LABS: BASOPHILS # (AUTO) 0.03 x10^3/uL (0-0.1); BASOPHILS % (AUTO) 1 % (0-1); EOSINOPHILS # (AUTO) 0.73 x10^3/uL (0-0.4); EOSINOPHILS % (AUTO) 22 % (1-7); LYMPHOCYTES # (AUTO) 0.33 x10^3/uL (1-3.4); LYMPHOCYTES % (AUTO) 10 % (22-44); MD NO; MEAN CORPUSCULAR HEMOGLOBIN 31.8 pg (27.5-34.5); MEAN CORPUSCULAR HGB CONC 33.2 g/dL (33.2-36.2); MEAN CORPUSCULAR VOLUME 95.9 fL (81-97); MEAN PLATELET VOLUME 6.6 fL (7.4-10.4); MONOCYTES # (AUTO) 0.55 x10^3/uL (0.2-0.8); MONOCYTES % (AUTO) 17 % (2-9); NEUTROPHILS # (AUTO) 1.66 x10^3/uL (1.8-6.8); NEUTROPHILS % (AUTO) 50 % (42-75); PLATELET COUNT 216 x10^3/uL (130-400)
[2019-09-29] MEDS ORDERED: ACET325T14 PO (18:14)
[2019-09-29] MEDS ORDERED: AMLO-150 PO (18:15)
[2019-09-29] MEDS ORDERED: ALBU0.63 NEB (18:15)
[2019-09-29] MEDS ORDERED: POTASSIUM CHLORIDE 20 MEQ PACKET ONE (18:19)
[2019-09-29] MEDS ORDERED: ATOR40TA PO (18:20)
[2019-09-29] MEDS ORDERED: BUDE10.2 INH (18:22)
[2019-09-29] MEDS ORDERED: CALC500T29 PO (18:24)
[2019-09-29] MEDS ORDERED: CARV-39 PO (18:27)
[2019-09-29] MEDS ORDERED: CHOL10003 PO (18:28)
[2019-09-29] MEDS ORDERED: FLUT15.845 NAS (18:30)
[2019-09-29] MEDS ORDERED: HYDR30SU4 PR (18:31)
[2019-09-29] MEDS ORDERED: LEVE250T28 PO (18:31)
[2019-09-29] MEDS ORDERED: LIDO700A20 TD (18:35)
[2019-09-29] MEDS ORDERED: MAGN400T26 PO (18:36)
[2019-09-29] MEDS ORDERED: LACT-23 PO (18:37)
[2019-09-29] MEDS ORDERED: OMEP40CA42 PO (18:38)
[2019-09-29] MEDS ORDERED: POLY500P18 PO (18:42)
[2019-09-29] MEDS ORDERED: RIVA20TA PO (18:43)
[2019-09-29] MEDS ORDERED: POTA20PI PO (18:44)
[2019-09-29] MEDS ORDERED: DOCU240C53 PO (18:47)
[2019-09-29] MEDS ORDERED: TIOT4MIS5 INH (18:47)
[2019-09-29] MEDS ORDERED: POTASSIUM CHLORIDE 40 MEQ in SODIUM CHLORIDE 0.9% 500 ML IV ONE (19:00)
--- NOTE | 2019-09-29 19:20 | NUR ---
REPORT RECEIVED FROM JS RN. PT RESTING ON GURNEY WITH FAMILY AT FOR SUPPORT. PT CONENCTED TO MONITORING, CALL LIGHT WITHIN REACH, ALL SAFETY MEASURES IN PLACE.
--- NOTE | 2019-09-29 19:21 | NUR ---
PT UPDATED ON POC.
[2019-09-29 19:43] VITALS: BP 150/86
--- NOTE | 2019-09-29 19:45 | NUR ---
PT TO D/C MEDICATIONS STILL RUNNING. THIS RN INFORMED DR. DOSS. IV MEDS TO COMPLETE PRIOR TO D/C. PT UPDATED.
--- NOTE | 2019-09-29 20:50 | NUR ---
PT DID NOT WANT TO COMPLETE K+ MD MAITE NOTIFIED. DR. FELICIANO APPROVED D/C PRIOR TO MEDICATION COMPLETION DUE TO OTHER K+ MEDS BEING PROVIDED. PT UPDATED.
== END 2019-09-29 20:54 | disposition home or self-care (01) ==
LOC: ED 20:51
DX: D61.3 Idiopathic aplastic anemia (principal); E87.6 Hypokalemia; I10 Essential (primary) hypertension; Z87.891 Personal history of nicotine dependence
CPT/HCPCS: 36415; 80048; 85025; 93005; 96365; 96366; 99284; J3480; J7040

== ENCOUNTER 2019-10-09 14:50 | Emergency (ER) | payer OTHER ==
[~2019-10-09] VITALS: Ht 170.2 cm; Wt 35.8 kg
[~2019-10-09 14:50] MED LIST changes: +ACET325T14 PO; +ALBU0.63 NEB; +AMLO-150 PO; +ATOR40TA PO; +BUDE10.2 INH; +CALC500T29 PO; +CARV-39 PO; +CHOL10003 PO; +DOCU240C53 PO; +FLUT15.845 NAS; +HYDR30SU4 PR; +LACT-23 PO; +LEVE250T28 PO; +MAGN400T26 PO; +OMEP40CA42 PO; +POLY500P18 PO; +POTA20PI PO; +RIVA20TA PO; +TIOT4MIS5 INH
[2019-10-09 14:54] VITALS: BP 198/90
--- NOTE | 2019-10-09 15:01 | NUR ---
PT BIB BY BIN. AND OCCUPATIONAL THERAPIST SAID "HE WAS MIXING UP HIS WORDS AND WASNT MAKING ANY SENSE AND HE SEEMED CONFUSED". THIS EPISODE LASTED FOR ABOUT AN HOUR. THE MEDICARE SALES REPRESENTATIVE ALSO NOTICED IT WHEN SHE ARRIVED ON SCENE. PT RESPONDS TO ALL COMMANDS AND IS A0X4. EKG DONE. HOOKED UP TO MONUMENT LETTERER. BLANKET PROVIDED.
[2019-10-09] MEDS ORDERED: ASPIRIN 325 MG TABLET PO ONE (15:30)
[2019-10-09] MEDS ORDERED: ASPIRIN 81 MG TABLET CHEW ONE (15:31)
== END 2019-10-09 15:35 | disposition home or self-care (01) ==
LOC: ED 15:27
DX: G45.9 Transient cerebral ischemic attack, unspecified (principal); J44.9 Chronic obstructive pulmonary disease, unspecified; I10 Essential (primary) hypertension; Z87.891 Personal history of nicotine dependence
CPT/HCPCS: 93005; 99283

== ENCOUNTER 2020-10-17 11:03 | Emergency (ER) | payer OTHER ==
[~2020-10-17] VITALS: Ht 165.1 cm; Wt 38.6 kg
[~2020-10-17 11:03] MED LIST changes: +CEFD300C37 PO
[2020-10-17 11:55] LABS: BASOPHILS % (AUTO) 1 % (0-1); EOSINOPHILS % (AUTO) 3 % (1-7); LYMPHOCYTES % (AUTO) 7 % (22-44); MD NO; MEAN CORPUSCULAR HEMOGLOBIN 30.2 pg (27.5-34.5); MEAN CORPUSCULAR HGB CONC 33.5 g/dL (33.2-36.2); MONOCYTES % (AUTO) 8 % (2-9); NEUTROPHILS % (AUTO) 82 % (42-75); PLATELET COUNT 312 x10^3/uL (130-400); RED BLOOD COUNT 4.28 x10^6/uL (4.38-5.82); RED CELL DISTRIBUTION WIDTH 15.2 % (9.4-14.8)
[2020-10-17 12:00] LABS: ALBUMIN 3.2 g/dL (3.4-5.0); CHLORIDE 101 mmol/L (98-107)
[2020-10-17 12:03] LABS: ALANINE AMINOTRANSFERASE 34 U/L (12-78); ALKALINE PHOSPHATASE 121 U/L (45-117)
[2020-10-17 12:14] LABS: ANION GAP 5 mmol/L (5-15); CALCIUM 8.6 mg/dL (8.5-10.1)
[2020-10-17 12:18] LABS: BILIRUBIN,TOTAL 0.4 mg/dL (0.2-1.0); CREATININE 1.02 mg/dL (0.7-1.3); TOTAL PROTEIN 8.1 g/dL (6.4-8.2)
[2020-10-17 12:26] LABS: MICROSCOPIC AUTO
--- NOTE | 2020-10-17 13:59 | NUR ---
PT ABLE TO STAND AT BEDSIDE FOR SHORT DURATION. PT IS UNSAFE TO WALK SHORT DISTANCES. PT STATES HE USES A WC AT HOME. 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
[2020-10-17 15:50] VITALS: BP 170/98
--- NOTE | 2020-10-17 15:54 | NUR ---
TASK RN: PT DC'D HOME WITH [facility].
== END 2020-10-17 15:57 | disposition home or self-care (01) ==
LOC: ED 12:56
DX: R53.1 Weakness (principal); R41.82 Altered mental status, unspecified; R94.31 Abnormal electrocardiogram [ECG] [EKG]; I10 Essential (primary) hypertension; J44.9 Chronic obstructive pulmonary disease, unspecified; Z86.73 Personal history of transient ischemic attack (TIA), and cerebral infarction without residual deficits
CPT/HCPCS: 36415; 80053; 81001; 85025; 87086; 93005; 99284

== ENCOUNTER 2021-02-23 16:57 | Inpatient (IN) | payer OTHER ==
[~2021-02-23] VITALS: Ht 172.7 cm; Wt 58.6 kg
[~2021-02-23 16:57] MED LIST changes: -CYCL-259 PO; +CYCL10TA2 PO; -OMEP40CA42 PO; +OMEP40CA8 PO
--- NOTE | 2021-02-23 17:11 | NUR ---
ASSUMED CARE OF PATIENT. PATIENT AMADEO STEWARD FROM HOME. PT REPORTS HE HAS BEEN SOB. PT USED TWO OF HIS ALBUTEROL NEBS AT HOME, PT WAS GIVEN TWO DUO NEBS BY EMS. PT STILL WHEEZING. PT IS ON 2.5L OF OXYGEN AT HOME. VS STABLE. CUSTOMER CARE TEAM COACH ON. NSR NOTED. 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 CALL LIGHT IN PLACE. WILL CONTINUE TO MONITOR.
--- NOTE | 2021-02-23 17:24 | NUR ---
PT RESTING IN ROOM. VS STABLE. SKETCH MAKER ON. PULSE OX ON. VS STABLE. CALL LIGHT IN PLACE. WILL CONTINUE TO MONITOR.
[2021-02-23] MEDS ORDERED: ROPI0.254 PO (17:59)
[2021-02-23] MEDS ORDERED: CARV6.2512 PO (18:00)
--- NOTE | 2021-02-23 18:00 | NUR ---
CALLED, MED REC UPDATED.
[2021-02-23] MEDS ORDERED: methylPREDNISolone SOD SUCC 125 MG/2 ML IVPush ONE (18:30)
[2021-02-23] MEDS ORDERED: methylPREDNISolone SOD SUCC 125 MG/2 ML ONE (18:30)
[2021-02-23] MEDS ORDERED: SODIUM CHLORIDE FLUSH 10ML SYR IVF ONE (18:30)
[2021-02-23] MEDS ORDERED: DOXYCYCLINE 100MG TABLET PO ONE (18:30)
[2021-02-23] MEDS ORDERED: SODIUM CHLORIDE 0.9% 1,000 ML IV ONE (18:30)
[2021-02-23] MEDS ORDERED: CEFTRIAXONE 1,000 MG in DEXTROSE 5% 50 ML IVPB ONE (18:30)
[2021-02-23] MEDS ORDERED: DOXYCYCLINE 100MG TABLET ONE (18:31)
--- NOTE | 2021-02-23 18:46 | NUR ---
ABX GIVEN AFTER BLOOD CULTURES DRAWN X 2
[2021-02-23 18:52] LABS: BASOPHILS % (AUTO) 1 % (0-1); EOSINOPHILS % (AUTO) 9 % (1-7); LYMPHOCYTES % (AUTO) 6 % (22-44); MEAN CORPUSCULAR HEMOGLOBIN 29.4 pg (27.5-34.5); MEAN CORPUSCULAR HGB CONC 33.5 g/dL (33.2-36.2); MEAN PLATELET VOLUME 7.7 fL (7.4-10.4); MONOCYTES % (AUTO) 10 % (2-9); NEUTROPHILS % (AUTO) 75 % (42-75); PLATELET COUNT 329 x10^3/uL (130-400); RED BLOOD COUNT 3.76 x10^6/uL (4.38-5.82); RED CELL DISTRIBUTION WIDTH 16.4 % (9.4-14.8)
[2021-02-23 18:58] LABS: MD NO
[2021-02-23 19:03] LABS: ALBUMIN 2.6 g/dL (3.4-5.0); ANION GAP 5 mmol/L (5-15); CALCIUM 8.6 mg/dL (8.5-10.1); CHLORIDE 103 mmol/L (98-107); CREATININE 0.75 mg/dL (0.7-1.3)
[2021-02-23] MEDS ORDERED: GUAIFENESIN/DM 200-20MG, 10ML UDC PO PRN (19:30)
[2021-02-23] MEDS ORDERED: POLYETHYLENE GLYCOL 17 GM PACKET PO PRN (19:30)
[2021-02-23] MEDS ORDERED: ONDANSETRON ODT 4 MG PO PRN (19:30)
[2021-02-23] MEDS ORDERED: hydrALAzine 20 MG/ML, 1ML IVPush PRN (19:30)
[2021-02-23] MEDS ORDERED: ACETAMINOPHEN 325 MG TABLET PO PRN (19:30)
[2021-02-23] MEDS ORDERED: BISACODYL 10 MG SUPP PR PRN (19:30)
[2021-02-23] MEDS ORDERED: hydrALAzine 20 MG/ML, 1ML ONE (20:04)
[2021-02-23 20:51] VITALS: BP 175/86
[2021-02-23 21:54] VITALS: BP 164/64
[2021-02-23] MEDS: ROPINIROLE 0.25MG TABLET PO SCH (21:58)
[2021-02-23] MEDS: CARVEDILOL 12.5 MG TABLET PO SCH (21:58)
[2021-02-23] MEDS: SODIUM CHLORIDE FLUSH 10ML SYR IVF SCH (21:58)
[2021-02-23] MEDS ORDERED: ALBUTEROL SULFATE 2.5 MG/3 ML NPPB PRN (23:00)
[2021-02-24 01:27] VITALS: BP 146/60
[2021-02-24] MEDS: methylPREDNISolone SOD SUCC 125 MG/2 ML IVPush SCH ×3 (02:30→17:32)
[2021-02-24] MEDS: DOXYCYCLINE 100 MG in DEXTROSE 5% 250 ML IV SCH ×2 (06:14→17:31)
[2021-02-24 07:45] VITALS: BP 165/76
[2021-02-24] MEDS: SODIUM CHLORIDE FLUSH 10ML SYR IVF SCH ×2 (08:46→20:35)
[2021-02-24] MEDS: SENNA/DOCUSATE TABLET PO SCH (08:46)
[2021-02-24] MEDS: CARVEDILOL 12.5 MG TABLET PO SCH ×2 (08:46→20:41)
[2021-02-24] MEDS ORDERED: OMNIPAQUE 350 MG/ML, 100ML BOTTLE ONE (12:55)
[2021-02-24 15:01] VITALS: BP 155/75
[2021-02-24 19:59] VITALS: BP 150/68
[2021-02-24] MEDS: CEFTRIAXONE 1,000 MG in DEXTROSE 5% 50 ML IVPB SCH (20:35)
[2021-02-24] MEDS: ROPINIROLE 0.25MG TABLET PO SCH (20:41)
[2021-02-25] MEDS: methylPREDNISolone SOD SUCC 125 MG/2 ML IVPush SCH ×3 (02:26→17:55)
[2021-02-25] MEDS: DOXYCYCLINE 100 MG in DEXTROSE 5% 250 ML IV SCH ×2 (05:12→17:56)
[2021-02-25] MEDS ORDERED: BISACODYL 10 MG SUPP PR ONE (07:00)
[2021-02-25 07:15] VITALS: BP 150/66
[2021-02-25] MEDS: CARVEDILOL 12.5 MG TABLET PO SCH ×2 (08:04→20:42)
[2021-02-25] MEDS: SENNA/DOCUSATE TABLET PO SCH (08:05)
[2021-02-25] MEDS: SODIUM CHLORIDE FLUSH 10ML SYR IVF SCH ×2 (08:05→20:39)
[2021-02-25 13:16] VITALS: BP 170/82
[2021-02-25] MEDS: CEFTRIAXONE 1,000 MG in DEXTROSE 5% 50 ML IVPB SCH (20:39)
[2021-02-25] MEDS: ROPINIROLE 0.25MG TABLET PO SCH (20:42)
[2021-02-25 20:59] VITALS: BP 150/62
[2021-02-26 01:01] VITALS: BP 160/78
[2021-02-26] MEDS: methylPREDNISolone SOD SUCC 125 MG/2 ML IVPush SCH ×3 (02:40→18:25)
[2021-02-26] MEDS: DOXYCYCLINE 100 MG in DEXTROSE 5% 250 ML IV SCH ×2 (05:52→18:23)
[2021-02-26 07:09] VITALS: BP 163/81
[2021-02-26] MEDS: SENNA/DOCUSATE TABLET PO SCH (09:54)
[2021-02-26] MEDS: CARVEDILOL 12.5 MG TABLET PO SCH ×2 (09:54→20:38)
[2021-02-26] MEDS: SODIUM CHLORIDE FLUSH 10ML SYR IVF SCH ×2 (09:56→20:39)
[2021-02-26 12:45] VITALS: BP 169/81
[2021-02-26 20:36] VITALS: BP 172/76
[2021-02-26] MEDS: ROPINIROLE 0.25MG TABLET PO SCH (20:38)
[2021-02-26] MEDS: CEFTRIAXONE 1,000 MG in DEXTROSE 5% 50 ML IVPB SCH (20:39)
[2021-02-27 01:07] VITALS: BP 162/73
[2021-02-27] MEDS: methylPREDNISolone SOD SUCC 125 MG/2 ML IVPush SCH ×2 (02:57→10:47)
[2021-02-27] MEDS: DOXYCYCLINE 100 MG in DEXTROSE 5% 250 ML IV SCH (05:31)
[2021-02-27 07:03] VITALS: BP 189/86
[2021-02-27 09:00] VITALS: BP 185/66
[2021-02-27] MEDS: SENNA/DOCUSATE TABLET PO SCH (09:02)
[2021-02-27] MEDS: CARVEDILOL 12.5 MG TABLET PO SCH (09:02)
[2021-02-27] MEDS: SODIUM CHLORIDE FLUSH 10ML SYR IVF SCH (09:03)
[2021-02-27 12:54] VITALS: BP 180/82
== END 2021-02-27 13:18 | disposition hospice, home (50) | DRG 193 ==
LOC: ED 17:53 → EDIP 19:02 → 3N 20:48
PROVIDERS: ADMIT Internal Medicine; ATTEND Hospitalist
DX: J18.9 Pneumonia, unspecified organism (principal); E43 Unspecified severe protein-calorie malnutrition; J44.0 Chronic obstructive pulmonary disease with (acute) lower respiratory infection; J44.1 Chronic obstructive pulmonary disease with (acute) exacerbation; J96.10 Chronic respiratory failure, unspecified whether with hypoxia or hypercapnia; M48.56XA Collapsed vertebra, not elsewhere classified, lumbar region, initial encounter for fracture; Z68.1 Body mass index [BMI] 19.9 or less, adult; D64.9 Anemia, unspecified; F17.210 Nicotine dependence, cigarettes, uncomplicated; I10 Essential (primary) hypertension; I73.9 Peripheral vascular disease, unspecified; K56.41 Fecal impaction; N40.1 Benign prostatic hyperplasia with lower urinary tract symptoms; L92.9 Granulomatous disorder of the skin and subcutaneous tissue, unspecified; R33.8 Other retention of urine; Z66 Do not resuscitate; Z85.828 Personal history of other malignant neoplasm of skin; Z86.711 Personal history of pulmonary embolism; Z86.718 Personal history of other venous thrombosis and embolism; Z92.3 Personal history of irradiation; Z99.81 Dependence on supplemental oxygen; Z88.0 Allergy status to penicillin
CPT/HCPCS: 36415; 71045; 71275; 74176; 80048; 82040; 83605; 84145; 85025; 87040; 93005; 96365; 96375; 99285; G0378; J0696; J7060; Q9967; J0360; J2930; J7030

== ENCOUNTER 2021-04-11 18:32 | Inpatient (IN) | payer OTHER ==
[~2021-04-11] VITALS: Ht 172.7 cm; Wt 51.0 kg
[~2021-04-11 18:32] MED LIST changes: +ASPI-963 PO; +AZIT500T PO; +CARV6.2512 PO; +FAMO-79 PO; +IPRA3AMP30 NPPB; +LOSA25TA2 PO; +PRED5TAB PO; +ROPI0.254 PO
--- NOTE | 2021-04-11 18:50 | NUR ---
PT MITZI FROM HOME D/T SOB. PT WAS SEEN HERE RECENTLY ACCORDING TO PT AND , HE WAS DIAGNOSED WITH LUNG CA AND DC'D ON HOSPICE. NEITHER PT OR REPORT BEING HAPPY WITH HOSPICE AT THIS TIME, STATE HE WAS "MISDIAGNOSED". TODAY PT BEGAN HAVING AN EXACERBATION, REPORTS RESCUE INHALER DID NOT HELP. PT PLACED ON SPO2/BP/ECG MONITORING. BED IN LOWEST,RAILS ENGAGED, CALL LIGHT ON LAP, WCTM. HX OF COPD AND "LUNG CANCER" ON HOSPICE.
[2021-04-11] MEDS ORDERED: methylPREDNISolone SOD SUCC 125 MG/2 ML ONE (19:23)
[2021-04-11] MEDS ORDERED: methylPREDNISolone SOD SUCC 40 MG/ML IVPush ONE (19:30)
[2021-04-11] MEDS ORDERED: AZITHROMYCIN 500 MG in SODIUM CHLORIDE 0.9% 250 ML IV ONE (19:30)
[2021-04-11 19:45] LABS: BASOPHILS % (AUTO) 1 % (0-1); EOSINOPHILS % (AUTO) 4 % (1-7); LYMPHOCYTES % (AUTO) 4 % (22-44); MEAN CORPUSCULAR HEMOGLOBIN 30.4 pg (27.5-34.5); MEAN PLATELET VOLUME 7.9 fL (7.4-10.4); MONOCYTES % (AUTO) 8 % (2-9); NEUTROPHILS % (AUTO) 83 % (42-75); PLATELET COUNT 130 x10^3/uL (130-400); RED BLOOD COUNT 3.79 x10^6/uL (4.38-5.82); RED CELL DISTRIBUTION WIDTH 18.6 % (9.4-14.8)
[2021-04-11 19:49] LABS: ALANINE AMINOTRANSFERASE 23 U/L (12-78); ALBUMIN 2.7 g/dL (3.4-5.0); ANION GAP 4 mmol/L (5-15); CALCIUM 8.2 mg/dL (8.5-10.1); CHLORIDE 102 mmol/L (98-107); CREATININE 0.76 mg/dL (0.7-1.3)
[2021-04-11 19:52] LABS: ALKALINE PHOSPHATASE 101 U/L (45-117); BILIRUBIN,TOTAL 0.4 mg/dL (0.2-1.0); TOTAL PROTEIN 6.1 g/dL (6.4-8.2)
[2021-04-11] MEDS ORDERED: SODIUM CHLORIDE 0.9%, 500ML IVBOLUS ONE (20:30)
[2021-04-11] MEDS ORDERED: DOXYCYCLINE 100 MG in DEXTROSE 5% 250 ML IV ONE (20:30)
--- NOTE | 2021-04-11 20:30 | NUR ---
PT RESTING ON GURNEY. NAD, APPEARS COMFORTABLE, C/O SHORTNESS OF BREATH WHEN NOT SITTING UPRIGHT IN BED. PT MONITORING IN PLACE, CHART UP FOR RECHECK. WCTM.
[2021-04-11] MEDS ORDERED: ALBUTEROL/IPRATROPIUM 2.5MG/0.5MG, 3 ML ONE (20:38)
[2021-04-11] MEDS ORDERED: ALBUTEROL SULFATE 2.5 MG/3 ML ONE (20:38)
--- NOTE | 2021-04-11 20:47 | NUR ---
PT MARIAH MONTES DE OCA
[2021-04-11] MEDS ORDERED: ALBUTEROL/IPRATROPIUM 2.5MG/0.5MG, 3 ML NEB ONE (21:00)
[2021-04-11] MEDS ORDERED: ALBUTEROL SULFATE 2.5 MG/3 ML NPPB ONE (21:00)
--- NOTE | 2021-04-11 21:07 | NUR ---
PT MEDICATED PER MAR, TO BE ADMITTED TO HOSPITAL, AWAITING BED, NAD, STATES HE IS BREATHING BETTER AFTER TREATMENTS. DENIES ADDITIONAL NEEDS, MED REC OBTAINED OVER PHONE FROM . ISHA.
[2021-04-11] MEDS: ROPINIROLE 0.25MG TABLET PO SCH (21:24)
[2021-04-11] MEDS: AZITHROMYCIN 500 MG in SODIUM CHLORIDE 0.9% 250 ML IV SCH (21:24)
--- NOTE | 2021-04-11 21:25 | NUR ---
MEDS THAT PT TOOK PRIOR TO ARRIVAL PER NON-ADMIN FOR [facility] 04/11.
[2021-04-11] MEDS ORDERED: ONDANSETRON ODT 4 MG PO PRN (21:30)
[2021-04-11] MEDS ORDERED: ACETAMINOPHEN 325 MG TABLET PO PRN (21:30)
[2021-04-11] MEDS ORDERED: CARVEDILOL 6.25 MG TABLET PO SCH (21:30)
[2021-04-11] MEDS ORDERED: BISACODYL 10 MG SUPP PR PRN (21:30)
[2021-04-11] MEDS ORDERED: GUAIFENESIN/DM 200-20MG, 10ML UDC PO PRN (21:30)
[2021-04-11] MEDS ORDERED: POLYETHYLENE GLYCOL 17 GM PACKET PO PRN (21:30)
[2021-04-11 23:05] VITALS: BP 181/84
[2021-04-11 23:18] VITALS: BP 171/83
[2021-04-11] MEDS: CEFTRIAXONE 1,000 MG in DEXTROSE 5% 50 ML IVPB SCH (23:49)
[2021-04-11] MEDS: HEPARIN 5,000 UNITS/ML, 1ML SQ SCH (23:50)
[2021-04-12 02:18] VITALS: BP 164/80
[2021-04-12 04:43] LABS: BASOPHILS % (AUTO) 0 % (0-1); EOSINOPHILS % (AUTO) 0 % (1-7); LYMPHOCYTES % (AUTO) 3 % (22-44); MEAN CORPUSCULAR HEMOGLOBIN 30.3 pg (27.5-34.5); MEAN CORPUSCULAR HGB CONC 33.9 g/dL (33.2-36.2); MEAN PLATELET VOLUME 7.9 fL (7.4-10.4); MONOCYTES % (AUTO) 1 % (2-9); NEUTROPHILS % (AUTO) 96 % (42-75); PLATELET COUNT 137 x10^3/uL (130-400); RED BLOOD COUNT 3.84 x10^6/uL (4.38-5.82); RED CELL DISTRIBUTION WIDTH 18.5 % (9.4-14.8)
[2021-04-12 04:48] LABS: ANION GAP 6 mmol/L (5-15); CALCIUM 8.4 mg/dL (8.5-10.1); CHLORIDE 102 mmol/L (98-107)
[2021-04-12 04:49] LABS: CREATININE 0.71 mg/dL (0.7-1.3)
[2021-04-12] MEDS: CARVEDILOL 12.5 MG TABLET PO SCH ×2 (05:49→17:00)
[2021-04-12] MEDS: ALBUTEROL/IPRATROPIUM 2.5MG/0.5MG, 3 ML NPPB SCH ×4 (06:57→19:03)
[2021-04-12 07:36] VITALS: BP 183/82
[2021-04-12] MEDS: ASPIRIN 81 MG TABLET EC PO SCH (08:11)
[2021-04-12] MEDS: LOSARTAN 25MG TABLET PO SCH (08:11)
[2021-04-12] MEDS: HEPARIN 5,000 UNITS/ML, 1ML SQ SCH ×3 (08:12→23:45)
[2021-04-12] MEDS: FAMOTIDINE 20 MG TABLET PO SCH (08:12)
[2021-04-12] MEDS: SENNA/DOCUSATE TABLET PO SCH (08:12)
[2021-04-12] MEDS ORDERED: TIOTROPIUM BROMIDE 18 MCG/INH INH SCH (09:00)
[2021-04-12] MEDS ORDERED: ENALAPRILAT 1.25 MG/ML, 2ML IV PRN (11:30)
[2021-04-12 13:04] VITALS: BP 139/84
[2021-04-12 17:00] VITALS: BP 161/76
[2021-04-12 19:11] VITALS: BP 133/67
[2021-04-12] MEDS: AZITHROMYCIN 500 MG in SODIUM CHLORIDE 0.9% 250 ML IV SCH (21:40)
[2021-04-12] MEDS: ROPINIROLE 0.25MG TABLET PO SCH (21:40)
[2021-04-12] MEDS: CEFTRIAXONE 1,000 MG in DEXTROSE 5% 50 ML IVPB SCH (23:45)
[2021-04-13 01:15] VITALS: BP 135/71
[2021-04-13] MEDS: CARVEDILOL 12.5 MG TABLET PO SCH (04:57)
[2021-04-13] MEDS: ALBUTEROL/IPRATROPIUM 2.5MG/0.5MG, 3 ML NPPB SCH ×3 (07:10→14:33)
[2021-04-13] MEDS: ASPIRIN 81 MG TABLET EC PO SCH (08:14)
[2021-04-13] MEDS: LOSARTAN 25MG TABLET PO SCH (08:14)
[2021-04-13] MEDS: SENNA/DOCUSATE TABLET PO SCH (08:14)
[2021-04-13] MEDS: FAMOTIDINE 20 MG TABLET PO SCH (08:14)
[2021-04-13] MEDS: HEPARIN 5,000 UNITS/ML, 1ML SQ SCH (08:15)
[2021-04-13 08:20] VITALS: BP 138/69
[2021-04-13] MEDS ORDERED: AZIT500T10 PO (08:33)
== END 2021-04-13 15:45 | disposition hospice, home (50) | DRG 193 ==
LOC: ED 20:45 → EDIP 21:02 → UNDOADMIN 21:02 → EDIP 21:22 → 4NW 22:32 → EDIP 22:32
PROVIDERS: ADMIT Internal Medicine; ATTEND Hospitalist
DX: J18.8 Other pneumonia, unspecified organism (principal); E43 Unspecified severe protein-calorie malnutrition; J44.1 Chronic obstructive pulmonary disease with (acute) exacerbation; E87.1 Hypo-osmolality and hyponatremia; I50.30 Unspecified diastolic (congestive) heart failure; J44.0 Chronic obstructive pulmonary disease with (acute) lower respiratory infection; J96.11 Chronic respiratory failure with hypoxia; Z68.1 Body mass index [BMI] 19.9 or less, adult; Z51.5 Encounter for palliative care; Z66 Do not resuscitate; D64.9 Anemia, unspecified; E78.5 Hyperlipidemia, unspecified; G25.81 Restless legs syndrome; I11.0 Hypertensive heart disease with heart failure; N40.0 Benign prostatic hyperplasia without lower urinary tract symptoms; Z85.828 Personal history of other malignant neoplasm of skin; Z86.711 Personal history of pulmonary embolism; Z86.73 Personal history of transient ischemic attack (TIA), and cerebral infarction without residual deficits; Z87.891 Personal history of nicotine dependence; Z88.0 Allergy status to penicillin
CPT/HCPCS: 36415; 96374; 96375; 99285; J7613; 71045; 80048; 80053; 85025; 87040; 93005; 94640; G0378; J0456; J0696; J1644; J7060; J2920; J7040; J7050

== ENCOUNTER 2021-04-26 17:10 | Emergency (ER) | payer OTHER ==
[~2021-04-26] VITALS: Ht 172.7 cm; Wt 54.0 kg
[~2021-04-26 17:10] MED LIST changes: +AZIT500T10 PO; +LORA-445 PO; +ROPI1TAB4 PO; +morphine PO
--- NOTE | 2021-04-26 17:21 | NUR ---
MITZI FROM HOME FOR INCREASE SOB, ARRIVED WITH HUNT IN PLACE. HX OF RECENT ADMIT FOR PNA AT [facility]. PER REPORT PT IS ON HOSPICE WITH [facility]. PT PLACED ON VITALS MONITORS, FALL PRECAUTIONS IN PLACE, CALL LIGHT PLACED WITHIN REACH.
--- NOTE | 2021-04-26 17:22 | NUR ---
HECTOR [phone].
--- NOTE | 2021-04-26 19:18 | NUR ---
TP RN: BIN CONTACTED FOR TRANSPORT HOME, [facility] WILL PUT IT IN BUT UNABLE TO PROVIDE ETA MULTIPLE TRANSFERS AND 911 CALLS.
[2021-04-26 20:25] VITALS: BP 188/87
--- NOTE | 2021-04-26 20:29 | NUR ---
CALL TO HECTOR PT'S TO INFORM PT WILL BE GOING HOME VIA [facility].
--- NOTE | 2021-04-26 20:59 | NUR ---
PT SLEEPING IN NAD, EVEN AND UNLABORED RESPIRATIONS NOTED.
--- NOTE | 2021-04-26 22:01 | NUR ---
[facility] HERE FOR TRANSPORT.
== END 2021-04-26 22:03 | disposition home or self-care (01) ==
LOC: ED 17:40
DX: J15.9 Unspecified bacterial pneumonia (principal); R05 Cough; R06.02 Shortness of breath; I10 Essential (primary) hypertension; J44.9 Chronic obstructive pulmonary disease, unspecified
CPT/HCPCS: 71045; 99283